=== PATIENT | female | born 1965 | race Caucasian/White ===

== ENCOUNTER 2020-08-19 08:53 | Emergency (ER) | payer OTHER ==
[~2020-08-19] VITALS: Ht 167.6 cm; Wt 102.1 kg
[~2020-08-19 08:53] MED LIST: HYDRA25 PO; IBUP400 PO; LIDO5TP TOP; METO100ER PO; NAPR500 PO; OMEP20ER PO
[2020-08-19 09:26] LABS: BASOPHILS ABSOLUTE AUTO 0.05 K/mm3 (0.00-0.23); BASOPHILS PERCENT AUTO 0 % (0-2); EOSINOPHILS ABSOLUTE AUTO 0.13 K/mm3 (0.00-0.68); EOSINOPHILS PERCENT AUTO 1 % (0-6); Hematocrit 37.1 % (33.0-51.0); Hemoglobin 11.6 g/dL (11.5-16.0); IMMATURE GRAN ABSOLUTE AUTO 0.04 K/mm3 (0.00-0.10); IMMATURE GRAN PERCENT AUTO 0 % (0-1); LYMPHOCYTES PERCENT AUTO 9 % (21-46); MONOCYTES ABSOLUTE AUTO 0.62 K/mm3 (0.16-1.47); MONOCYTES PERCENT AUTO 5 % (4-13); Mean Corpuscular HGB Conc 31.3 g/dL (31.5-36.5); Mean Corpuscular Volume 83 fL (80-100); Mean Platelet Volume 10.6 fL (9.1-12.4); NEUTROPHILS ABSOLUTE AUTO 10.12 K/mm3 (1.96-9.15); NEUTROPHILS PERCENT AUTO 84 % (41-73); Platelet Count 369 K/mm3 (150-400); RDW Coefficient Variation 13.5 % (11.7-14.2); RDW Standard Deviation 41.2 fL (35.1-46.3); Red Blood Cell Count 4.46 M/mm3 (3.80-5.20); White Blood Cell Count 12.06 K/mm3 (4.00-11.30)
[2020-08-19 09:37] LABS: Alanine Aminotransfer (ALT/SGP 14 U/L (12-78); Albumin, Blood 3.6 g/dL (3.4-5.0); Albumin/Globulin Ratio 0.9 (0.8-1.8); Alk Phos 87 U/L (50-136); Anion Gap 5 mmol/L (6-16); Aspartate Aminotrans (AST/SGOT 13 U/L (12-37); Bilirubin, Total 0.3 mg/dL (0.1-1.0); Blood Urea Nitrogen 17 mg/dL (8-24); Bun/Creatinine Ratio 18.7 (12.0-20.0); CO2, Blood 26 mmol/L (21-32); Calcium, Blood 8.8 mg/dL (8.5-10.1); Chloride, Blood 108 mmol/L (98-108); Creatinine, Blood 0.91 mg/dL (0.40-1.00); Globulin, Blood 4.1 g/dL (2.2-4.0); Glomerular Filtration Rate >60 (60-); Glucose, Blood 95 mg/dL (70-99); Potassium, Blood 3.7 mmol/L (3.5-5.5); Sodium, Blood 139 mmol/L (136-145); Total Protein, Blood 7.7 g/dL (6.4-8.2)
[2020-08-19 09:49] LABS: Source, Urine Clean Catch
[2020-08-19 09:55] LABS: Appearance, Urine Hazy (Clear); Bilirubin, Urine Neg (Neg); Blood, Urine 2+ (Neg); Color, Urine Yellow (P-Yellow); Glucose Qualitative, Urine Neg (Neg); Ketones, Urine Neg (Neg); Leukocyte Esterase, Urine Neg (Neg); Nitrite, Urine Neg (Neg); Protein, Urine 2+ (Neg); Specific Gravity, Urine 1.015 (1.003-1.022); Urobilinogen, Urine NORM (Normal)
[2020-08-19 10:10] LABS: Amorphous Heavy (0-Heavy); Bacteria Rare /hpf; Squamous Epithelial Cells Few /hpf (Few)
[2020-08-19] MEDS ORDERED: ONDA4ODT MM (12:47)
[2020-08-19] MEDS ORDERED: Cipro500 MG PO (12:47)
[2020-08-19] MEDS ORDERED: Percocet 5-3251 EACH PO (12:47)
[2020-08-19] MEDS ORDERED: Flagyl500 MG PO (12:47)
== END 2020-08-19 13:41 | disposition home or self-care (01) ==
LOC: ER 08:53
PROVIDERS: Emergency Medicine
DX: K57.92 Diverticulitis of intestine, part unspecified, without perforation or abscess without bleeding (principal); D27.1 Benign neoplasm of left ovary; I10 Essential (primary) hypertension; Z79.899 Other long term (current) drug therapy
CPT/HCPCS: 74176; 76830; 76856; 80053; 81001; 84484; 85025; 96361; 96365; 96367; 96375; 99284-25; A9270; J0360; J0744; J1885; J3010; J7030; Q0163

== ENCOUNTER 2020-09-09 12:17 | Day surgery (SDC) | payer OTHER, SELFPAY ==
[~2020-09-09 12:17] MED LIST changes: +Cipro500 MG PO; +Flagyl500 MG PO; +ONDA4ODT MM; +Percocet 5-3251 EACH PO
--- NOTE | 2020-09-09 15:11 | NUR ---
PT C/O OF A HEADACHE. SPOKE TO DR DUONG. GAVE PT IBUPROFEN WITH A SIP OF WATER.
--- NOTE | 2020-09-09 16:15 | NUR ---
Ambulatory in Day Surgery History, Chart, Medications and Allergies reviewed before start of procedure.Lungs clear T/O to Auscultation. Patient confirms NPO status and agrees with scheduled surgery.
[2020-09-09 18:49] LABS: BASOPHILS ABSOLUTE AUTO 0.03 K/mm3 (0.00-0.23); BASOPHILS PERCENT AUTO 0 % (0-2); EOSINOPHILS ABSOLUTE AUTO 0.14 K/mm3 (0.00-0.68); EOSINOPHILS PERCENT AUTO 2 % (0-6); Hematocrit 37.7 % (33.0-51.0); Hemoglobin 11.6 g/dL (11.5-16.0); IMMATURE GRAN ABSOLUTE AUTO 0.03 K/mm3 (0.00-0.10); IMMATURE GRAN PERCENT AUTO 0 % (0-1); LYMPHOCYTES ABSOLUTE AUTO 0.74 K/mm3 (0.84-5.20); LYMPHOCYTES PERCENT AUTO 8 % (21-46); MONOCYTES ABSOLUTE AUTO 0.21 K/mm3 (0.16-1.47); MONOCYTES PERCENT AUTO 2 % (4-13); Mean Corpuscular HGB 26.1 pg (26.0-34.0); Mean Corpuscular HGB Conc 30.8 g/dL (31.5-36.5); Mean Corpuscular Volume 85 fL (80-100); Mean Platelet Volume 10.6 fL (9.1-12.4); NEUTROPHILS PERCENT AUTO 87 % (41-73); Platelet Count 279 K/mm3 (150-400); RDW Coefficient Variation 13.2 % (11.7-14.2); RDW Standard Deviation 41.2 fL (35.1-46.3); Red Blood Cell Count 4.44 M/mm3 (3.80-5.20); White Blood Cell Count 8.95 K/mm3 (4.00-11.30)
--- NOTE | 2020-09-09 19:29 | NUR ---
POST OP: REPORT RECEIVED FROM BURLAP MAN. PT TO UNIT AT ABOUT 1824. UPON ASSESSMENT PT IS A/O, HTN NOTED PT RATES PAIN 6/10, OTHERWISE VSS. SURGICAL SITE WNL, SCANT DRAINAGE PRESENT. NO VAGINAL BLEED NOTED. PT MEDICATED FOR PAIN PER EMAR AND OREINTED TO CALL LIGHT/ ROOM. WILL CTM.
--- NOTE | 2020-09-09 23:52 | NUR ---
DISCUSSED DISCHARGE WITH PT AT SHIFT CHANGE. PT WANTED TO STAY OVERNIGHT SHE HAD JUST GOTTEN OUT OF SURGERY AND WANTED TO MAKE SURE PAIN WAS MANAGED BEFORE GOING HOME. PT REQUESTING TO DISCHARGE ASSISTANT PROFESSOR OF HISTORY.
[2020-09-10] MEDS ORDERED: HYDROCODONE-AC1 EAC5 PO (01:10)
[2020-09-10] MEDS ORDERED: MOTRIN IB200 MG PO (01:11)
[2020-09-10 04:31] LABS: BASOPHILS ABSOLUTE AUTO 0.02 K/mm3 (0.00-0.23); BASOPHILS PERCENT AUTO 0 % (0-2); EOSINOPHILS PERCENT AUTO 0 % (0-6); Hematocrit 34.9 % (33.0-51.0); Hemoglobin 10.9 g/dL (11.5-16.0); IMMATURE GRAN ABSOLUTE AUTO 0.06 K/mm3 (0.00-0.10); IMMATURE GRAN PERCENT AUTO 1 % (0-1); LYMPHOCYTES ABSOLUTE AUTO 0.61 K/mm3 (0.84-5.20); LYMPHOCYTES PERCENT AUTO 5 % (21-46); MONOCYTES ABSOLUTE AUTO 0.48 K/mm3 (0.16-1.47); MONOCYTES PERCENT AUTO 4 % (4-13); Mean Corpuscular HGB 26.4 pg (26.0-34.0); Mean Corpuscular HGB Conc 31.2 g/dL (31.5-36.5); Mean Corpuscular Volume 85 fL (80-100); Mean Platelet Volume 10.7 fL (9.1-12.4); NEUTROPHILS ABSOLUTE AUTO 10.69 K/mm3 (1.96-9.15); NEUTROPHILS PERCENT AUTO 90 % (41-73); Platelet Count 281 K/mm3 (150-400); RDW Coefficient Variation 13.2 % (11.7-14.2); RDW Standard Deviation 40.2 fL (35.1-46.3); Red Blood Cell Count 4.13 M/mm3 (3.80-5.20); White Blood Cell Count 11.86 K/mm3 (4.00-11.30)
--- NOTE | 2020-09-10 04:49 | NUR ---
SHIFT SUMMARY PT A/O X4. IND IN ROOM WITH OCC SBA FOR SCDS. PAIN MANAGED WITH NORCO AND TORADOL PER ORDERS. TOLERATING PO INTAKE, AMBULATING, AND VOIDING. TRANSVERSE DRESSING TO ABD HAS SMALL AMNT DRAINAGE, WHICH HAS NOT INCREASED SINCE START OF SHIFT. PT DENIES VAGINAL BLEEDING OVERNIGHT. PT REQUESTING TO DC HOME AROUND [phone]. PT RESTING WITH CALL LIGHT IN REACH AT THIS TIME.
--- NOTE | 2020-09-10 06:57 | NUR ---
DISCHARGE PT DC'D HOME AT 0630. PT TOLERATING PO INTAKE, PASSING GAS, AND VOIDING. PAIN MANAGED WITH PO PAIN MED AND TORADOL PER ORDERS. PT AMBULATING. DRESSING WNL. DC INSTRUCTIONS GIVEN, PT REPORTS UNDERSTANDING. SCRIPT SENT WITH PT WELL INSTRUCTIONS. PT TO BE PICKED UP BY . PT REPORTS NO FURTHER QUESTIONS. IV DC'D WNL. ESCORTED TO VEHICLE BY ATTENDING PHYSICIAN.
== END 2020-09-10 06:34 | disposition home or self-care (01) ==
LOC: ORSCMMR 12:17 → SURS 18:31 → ORSCMMR 09-10 06:34 → SURS 09-10 06:34
PROVIDERS: Obstetrics & Gynecology
PROC: 0UT10ZZ Resection of Left Ovary, Open Approach (ICD-10-PCS; principal; 2020-09-09 07:30)
PROC: 0UT70ZZ Resection of Bilateral Fallopian Tubes, Open Approach (ICD-10-PCS; principal; 2020-09-09 07:30)
DX: N83.8 Other noninflammatory disorders of ovary, fallopian tube and broad ligament (principal); D27.1 Benign neoplasm of left ovary; J45.909 Unspecified asthma, uncomplicated; I10 Essential (primary) hypertension; Z79.899 Other long term (current) drug therapy
CPT/HCPCS: 36415; 85025; 88305; A9270-GY; J1100; J1885; J2250; J2405; J2704; J3010; Q0163

== ENCOUNTER → 2023-02-06 | Outpatient (CLI) | payer OTHER ==
[~2023-02-06] MED LIST changes: +HYDROCODONE-AC1 EAC5 PO; +MOTRIN IB200 MG PO
[2023-02-07 15:07] LABS: HPV 16 Negative (Negative); HPV 18 Negative (Negative); HPV OTHER HR TYPES Negative (Negative)
== END | disposition home or self-care (01) ==
LOC: LAB SHORT 14:00 → LAB 14:00
PROVIDERS: Obstetrics & Gynecology
DX: Z12.4 Encounter for screening for malignant neoplasm of cervix (principal)
CPT/HCPCS: 87624; G0145

== ENCOUNTER → 2023-02-26 | Outpatient (CLI) | payer OTHER | END | disposition home or self-care (01) | LOC: LAB 07:44 → LAB SHORT 07:44 | DX: R93.89 Abnormal findings on diagnostic imaging of other specified body structures (principal) | CPT/HCPCS: 88305 ==

== ENCOUNTER 2023-08-29 06:49 | Day surgery (SDC) | payer OTHER ==
[2023-08-29] VITALS (20 sets, daily range): BP systolic 90–158; BP diastolic 42–96
[~2023-08-29] VITALS: Ht 177.8 cm; Wt 102.6 kg
[~2023-08-29 06:49] MED LIST changes: +AMLO10 PO; +CeFAZolin Sodium 2,000 MG in NS 50 ML IV SCH; +IPRAT-ALBUT 0.5-3 ML INH; +Lactated Ringer's 1,000 ML IV SCH; +METF500 PO; +OZEMPIC0.25 MG/02 SC; +PROAIR INH; +TRELEGY ELLIPT1 EACH INH; +ZYRTEC10 M2 PO
[2023-08-29] MEDS ORDERED: WEGOVY0.5 MG/0.5 SQ (07:05)
[2023-08-29] MEDS ORDERED: Rocuronium Bromide 10 MG/ML 5ML Injection IV ONE (07:40)
[2023-08-29] MEDS ORDERED: propofoL 20 ML IV ONE (07:40)
[2023-08-29] MEDS ORDERED: Dexamethasone Sod Phos 10 MG/ML 1ML VIAL ONE (07:40)
[2023-08-29] MEDS ORDERED: HYDROmorphone HCl/Pf 1MG SYR ONE ×2 (07:40→10:34)
[2023-08-29] MEDS ORDERED: Ondansetron HCl 2 MG / ML 2ML Vial ONE (07:40)
[2023-08-29] MEDS ORDERED: Ketorolac Tromethamine 30mg Vial ONE (07:40)
[2023-08-29] MEDS ORDERED: FentaNYL Citrate 50 MCG/ML 2 ML Injection ONE ×2 (07:41→10:30)
--- NOTE | 2023-08-29 08:04 | NUR ---
PT REPORTS FEELING NUMBNESS AND TINGLING IN BILAT HANDS/FINGERS. HAD A BRIEF MOMENT OF DISORIENTATION, ADMITS TO NOT EATING DINNER NIGHT BEFORE PROCEDURE AND HAVING POSSIBLE LOW BLOOD GLUCOSE. PT ON METFORMIN, GLUCOSE CHECKED PER PREPROCEDURE PROTOCOL. 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
[2023-08-29] MEDS ORDERED: Sugammadex Sodium 200 MG/2ML SDV (100 MG/ML) ONE (09:44)
--- NOTE | 2023-08-29 09:55 | NUR ---
08/29/23 0955 RAIMUNDO ALATORRE 10ML LIDOCAINE 1% W/EPI WAS INJECTED TO OPSITE BY DR. DUONG IN OPERATING ROOM.
[2023-08-29] MEDS ORDERED: OxyCODONE HCL 5 MG TAB PO PRN (10:00)
[2023-08-29] MEDS ORDERED: Ondansetron HCl 2 MG / ML 2ML Vial IV PRN (10:00)
[2023-08-29] MEDS ORDERED: Lactated Ringer's 1,000 ML IV SCH (10:00)
[2023-08-29] MEDS ORDERED: Ibuprofen 400 MG Tab PO PRN (10:00)
[2023-08-29] MEDS ORDERED: FentaNYL Citrate 50 MCG/ML 2 ML Injection IV PRN (10:00)
[2023-08-29] MEDS ORDERED: FLU VACC QS2023-24(6MOS UP)/PF 60 MCG/0.5 ML SYRINGE IM SCH (10:00)
[2023-08-29] MEDS ORDERED: DiphenhydrAMINE HCL 25 MG Cap PO PRN (10:05)
[2023-08-29] MEDS ORDERED: Acetaminophen 325 MG TABLET PO PRN (10:05)
[2023-08-29 11:45] LABS: BASOPHILS ABSOLUTE AUTO 0.03 K/mm3 (0.00-0.23); BASOPHILS PERCENT AUTO 0 % (0-2); EOSINOPHILS ABSOLUTE AUTO 0.08 K/mm3 (0.00-0.68); EOSINOPHILS PERCENT AUTO 1 % (0-6); Hematocrit 37.1 % (33.0-51.0); Hemoglobin 11.7 g/dL (11.5-16.0); IMMATURE GRAN ABSOLUTE AUTO 0.02 K/mm3 (0.00-0.10); IMMATURE GRAN PERCENT AUTO 0 % (0-1); LYMPHOCYTES ABSOLUTE AUTO 0.76 K/mm3 (0.84-5.20); LYMPHOCYTES PERCENT AUTO 7 % (21-46); MONOCYTES ABSOLUTE AUTO 0.26 K/mm3 (0.16-1.47); MONOCYTES PERCENT AUTO 3 % (4-13); Mean Corpuscular HGB 27.3 pg (26.0-34.0); Mean Corpuscular HGB Conc 31.5 g/dL (31.5-36.5); Mean Corpuscular Volume 87 fL (80-100); Mean Platelet Volume 10.3 fL (9.1-12.4); NEUTROPHILS ABSOLUTE AUTO 9.18 K/mm3 (1.96-9.15); NEUTROPHILS PERCENT AUTO 89 % (41-73); Platelet Count 312 K/mm3 (150-400); RDW Coefficient Variation 13.5 % (11.7-14.2); RDW Standard Deviation 42.5 fL (35.1-46.3); Red Blood Cell Count 4.28 M/mm3 (3.80-5.20); White Blood Cell Count 10.33 K/mm3 (4.00-11.30)
[2023-08-29] MEDS ORDERED: Ketorolac Tromethamine 30mg Vial IV SCH (12:00)
--- NOTE | 2023-08-29 17:43 | NUR ---
DISCHARGE SUMMARY PODO LAVH, A/OX4, VSS, TOLERATING PO, AMBULATING INDEPENDENTLY, PAIN MANAGED WITH PO MEDICATIONS ONLY, DENIES NAUSEA, LAP SITES ON ABD C/D/I, IV ACCESS REMOVED DURING DISCHARGE. DISCUSSED DISCHARGE INFORMATION WITH HER INCLUDING HOME CARE, MEDICATIONS, AND FOLLOW UP APPOINTMENTS. NO QUESTIONS AT THIS TIME. ESCORTED OUT VIA WC TO PRIVATE AUTO TO GO HOME.
== END 2023-08-29 16:54 | disposition home or self-care (01) ==
LOC: ORSCMMR 06:49 → ORD 08:00 → ORSCMMR 08:00 → SURS 11:25 → ORSCMMR 11:26 → SURS 16:54
PROVIDERS: Obstetrics & Gynecology
PROC: 0UT5FZZ Resection of Right Fallopian Tube, Via Natural or Artificial Opening With Percutaneous Endoscopic Assistance (ICD-10-PCS; principal; 2023-08-29 08:00)
PROC: 0UT0FZZ Resection of Right Ovary, Via Natural or Artificial Opening With Percutaneous Endoscopic Assistance (ICD-10-PCS; principal; 2023-08-29 08:00)
PROC: 0UT9FZZ Resection of Uterus, Via Natural or Artificial Opening With Percutaneous Endoscopic Assistance (ICD-10-PCS; principal; 2023-08-29 08:00)
DX: N95.0 Postmenopausal bleeding (principal); R10.2 Pelvic and perineal pain; D25.9 Leiomyoma of uterus, unspecified; N81.4 Uterovaginal prolapse, unspecified; I10 Essential (primary) hypertension; J45.909 Unspecified asthma, uncomplicated; K21.9 Gastro-esophageal reflux disease without esophagitis; Z79.899 Other long term (current) drug therapy; Z90.721 Acquired absence of ovaries, unilateral
CPT/HCPCS: 36415; 82947; 85025; 88307; A9270; J0690; J1100; J1170; J1885; J2405; J2704; J3010; J7120

== ENCOUNTER 2025-07-07 05:59 | Day surgery (SDC) | payer BC ==
[~2025-07-07] VITALS: Ht 177.8 cm; Wt 98.7 kg
[2025-07-07] VITALS (14 sets, daily range): BP systolic 105–181; BP diastolic 64–98
[~2025-07-07 05:59] MED LIST changes: -CeFAZolin Sodium 2,000 MG in NS 50 ML IV SCH; -Lactated Ringer's 1,000 ML IV SCH; +WEGOVY0.5 MG/0.5 SQ
[2025-07-07] MEDS ORDERED: CeFAZolin Sodium 2,000 MG in NS 100 ML IV SCH ×2 (06:20→16:00)
[2025-07-07] MEDS ORDERED: Chlorhexidine Mouth Care 15 ML UDC MT SCH (06:20)
[2025-07-07] MEDS ORDERED: Ropivacaine 0.5% HCl/Pf 123.125 MG,EPINEPHrine HCL 0.25 MG,Ketorolac Tromethamine 15 MG... INFIL SCH (06:20)
[2025-07-07] MEDS ORDERED: Tranexamic Acid 100 ML IV SCH (06:20)
[2025-07-07] MEDS ORDERED: Ondansetron HCl 2 MG / ML 2ML Vial IV PRN ×2 (07:00→08:50)
[2025-07-07] MEDS ORDERED: Magnesium Hydroxide Conc 10 ML UDC PO PRN (07:00)
[2025-07-07] MEDS ORDERED: Metoclopramide HCl 5MG / ML 2ML Vial IV PRN (07:00)
--- NOTE | 2025-07-07 07:00 | NUR ---
AMBULATORY INTO SDS. PT REPORTS 6/10 LEFT KNEE PAIN. HISTORY AND ALLERGIES REVIEWED. PT REPORTS FEELING ANXIOUS THIS AM. SBP 180'S/90'S. LUNGS CLEAR. PT DID ADVAIR THIS AM. NO NOTED SOB. PT FELT SHE HAD AN ASTHMA ATTACK YESTERDAY AFTERNOON AND SHE DID A UDN AROUND 1500. SATS>90% ON RA.NPO STATUS CONFIRMED. PT HAS BAG WITH HORSE ON IT-GIVEN TO HER SPOUSE AMBAR. CLOTHING IN BELONGINGS BAG BELOW THE GURNEY.
[2025-07-07] MEDS ORDERED: FLU VACC TS2025-26(6MOS UP)/PF 45 MCG/0.5 ML SYRINGE IM SCH (07:05)
[2025-07-07] MEDS ORDERED: HYDROmorphone HCl/Pf 1MG SYR IV PRN ×3 (07:05→08:50)
[2025-07-07] MEDS ORDERED: FentaNYL Citrate 50 MCG/ML 2 ML Injection ONE (07:09)
[2025-07-07] MEDS ORDERED: Midazolam HCl 1MG / ML 2ML Vial ONE ×4 (07:09→13:17)
[2025-07-07] MEDS ORDERED: Ipratropium/Albuterol SulF 2.5-0.5MG/3 ML Amp INH PRN (07:10)
[2025-07-07] MEDS ORDERED: Formoterol/Mometasone MDI 5/100 mcg 13 GM INH SCH (07:25)
[2025-07-07] MEDS ORDERED: Ipratropium Bromide INH 0.02% 0.5 mg/2.5ML Vial INH SCH (07:25)
[2025-07-07] MEDS ORDERED: Albuterol HFA200 ACT/6.7 GM INH INH PRN (07:25)
[2025-07-07] MEDS ORDERED: DiphenhydrAMINE HCl 50 MG/ML 1ML Vial ONE (07:55)
[2025-07-07] MEDS ORDERED: FentaNYL Citrate 50 MCG/ML 2 ML Injection IV PRN ×2 (08:50)
[2025-07-07] MEDS ORDERED: ACET500 PO (11:22)
[2025-07-07] MEDS ORDERED: HYDMOR2 PO (11:22)
[2025-07-07] MEDS ORDERED: SULTRIDS PO (11:23)
[2025-07-07] MEDS ORDERED: XARELTO10 M1 PO (11:23)
[2025-07-07] MEDS ORDERED: ePHEDrine Sulfate 50 MG/ML 1ML Injection ONE (11:44)
[2025-07-07] MEDS ORDERED: Ondansetron HCl 2 MG / ML 2ML Vial ONE (11:45)
[2025-07-07] MEDS ORDERED: Ketorolac Tromethamine 15mg Vial IV SCH (12:00)
--- NOTE | 2025-07-07 16:16 | NUR ---
ASSUMED CARE OF PT FROM PANCHO Traore RN. PT SITTING UP IN RECLINER. NAUSEATED. CALL LIGHT IN REACH.
--- NOTE | 2025-07-07 16:24 | NUR ---
POST OP: REPORT FROM PACU AND PT TO UNIT AT 1100. PT IS A/O, VSS, SENSATION INTACT AND ABLE TO MOVE LEGS. SURGICAL L KNEE SITE AND SPINAL SITE WNL. CALL LIGHT IN REACH
--- NOTE | 2025-07-07 16:25 | NUR ---
SUMMARY: PT WORKED WITH THERAPY, PAIN HAS INCREASED. MEDICATED PER EMAR. PT REPORTED SOME NAUSEA, MEDICATED. NO EMESIS. PT ATTEMPTING TO VOID. PO FLUIDS ENCOURAGED. SURGICAL SITE CDI. REPORT PASSED TO ANGEL MATHEW.
--- NOTE | 2025-07-07 20:40 | NUR ---
PT DISCHARGED TO HOME WITH .TRANSFERRED TO CAR VIA W/C.
[2025-07-08] MEDS ORDERED: Ipratropium Bromide INH 0.02% 0.5 mg/2.5ML Vial INH SCH (07:25)
[2025-07-08] MEDS ORDERED: Trimethoprim/Sulfamethoxazole DS Tab PO SCH (09:00)
== END 2025-07-07 20:45 | disposition home or self-care (01) ==
LOC: ORSCMMR 05:59 → ORD 07:30 → SURS 11:05 → ORSCMMR 20:45
PROVIDERS: Orthopaedic Surgery
PROC: 0SRD0J9 Replacement of Left Knee Joint with Synthetic Substitute, Cemented, Open Approach (ICD-10-PCS; principal; 2025-07-07 07:30)
DX: M17.12 Unilateral primary osteoarthritis, left knee (principal); I10 Essential (primary) hypertension; J45.909 Unspecified asthma, uncomplicated; K21.9 Gastro-esophageal reflux disease without esophagitis; Z79.899 Other long term (current) drug therapy; Z85.9 Personal history of malignant neoplasm, unspecified
CPT/HCPCS: 73560-LT; 97110; 97116; 97162; 97530; A9270; C1713; C1776; J0166; J0690; J0735; J1171; J1200; J1885; J2250; J2405; J2704; J2795; J3010; J7120